=== PATIENT | female | born 1985 | race Asian ===

== ENCOUNTER 2018-10-21 07:33 | Inpatient (IN) | payer OTHER ==
[~2018-10-21] VITALS: Ht 154.9 cm; Wt 75.4 kg
[~2018-10-21 07:33] MED LIST: PRENAT PO; ZOLP10TA PO
[2018-10-21 07:42] VITALS: Ht 154.9 cm; Wt 75.4 kg
[2018-10-21] MEDS ORDERED: CEFAZOLIN 2 GM/50 ML (PMX) 50 ML IVPB SCH (08:00)
[2018-10-21] MEDS ORDERED: METHYLERGONOVINE 0.2 MG INJ IM PRN ×2 (08:00→11:30)
[2018-10-21] MEDS ORDERED: CARBOPROST 250 MCG INJ IM PRN ×2 (08:00→11:30)
[2018-10-21] MEDS ORDERED: OXYTOCIN 30 UNITS/LR 500 ML IV PRN ×2 (08:00→11:30)
[2018-10-21] MEDS ORDERED: OXYTOCIN 30 UNITS/LR 500 ML IV SCH ×2 (08:00→11:23)
[2018-10-21] MEDS ORDERED: MISOPROSTOL 200 MCG TAB PR PRN ×2 (08:00→11:30)
[2018-10-21] MEDS: LACTATED RINGER'S 1,000 ML IV SCH ×2 (08:09→09:38)
--- NOTE | 2018-10-21 08:58 | PREAC ---
Date/Time of Note Date/Time of Note DATE: 10/21/18 TIME: 08:56 Anesthesia Eval and Record Evaluation Time Pre-Procedure Interview DATE: 10/21/18 TIME: 08:56 Age 32 Sex female NPO: 8 hrs Preoperative diagnosis with previous C/S Planned procedure Repeat C/S Past Medical History Past Medical History: None Surgery & Anesthesia Issues No known issue Meds Anticoagulation: No Beta William within 24 hr: No Reason Beta William not given: Pt. not on B-William Reported Medications Zolpidem Tartrate* (Ambien*) 10 Mg Tablet, 10 MG PO HS PRN for INSOMNIA, TAB 01/20/15 Multivit/Min/Fol Ac/Iron/Pren* ( S*) 1 Tab Tab, 1 TAB PO DAILY, TAB 12/05/14 Current Medications Lactated Ringer's 1,000 ml @ 125 mls/hr Q8H IV Last administered on 10/21/18at 08:09; Admin Dose 125 MLS/HR; Start 10/21/18 at 07:39 Cefazolin Sodium/ Dextrose 50 ml @ 100 mls/hr ONCE IVPB ; Start 10/21/18 at 08:00 Oxytocin/Lactated Ringer's 500 ml @ 125 mls/hr POST IV ; Start 10/21/18 at 08:00 Oxytocin/Lactated Ringer's 500 ml @ 0 mls/hr ONCE PRN IV VAGINAL BLEEDING; Start 10/21/18 at 08:00 Methylergonovine Maleate (Methergine) 0.2 mg ONCE PRN IM VAGINAL BLEEDING; Start 10/21/18 at 08:00 Carboprost Tromethamine (Hemabate) 250 mcg ONCE PRN IM VAGINAL BLEEDING; Start 10/21/18 at 08:00 Misoprostol (Cytotec) 1,000 mcg ONCE PRN MI VAGINAL BLEEDING; Start 10/21/18 at 08:00 Meds reviewed: Yes Allergies Coded Allergies: No Known Allergy (Unverified , 01/20/15) Allergies Reviewed: Yes Labs/Studies Labs Reviewed: Reviewed by anesthesiologist Result Diagram: 10/21/18 0750 Laboratory Tests 10/21/18 07:50 Blood Bank Test 10/21/18 07:50 Blood Type A POSITIVE Rh Immune Globulin Candidate NO test: Positive Pre-procedure Exam Airway: Adequate mouth opening Mallampati: Mallampati II Teeth: Normal Lung: Normal Heart: Normal ASA Physical Status ASA physical status: 2 Emergency: None Planned Anesthetic Neuraxial: Spinal Planned Pain Management Sub-arachniod narcotics Pre-operative Attestations Prior to commencing anesthesia and surgery, the patient was re-evaluated, there was verification of: *The patient's identity *The results of appropriate recent lab work and preoperative vital signs *The above evaluation not changing prior to induction *Anesthetic plan, risk benefits, alternative and complications discussed with patient/family; questions answered; patient/family understands, accepts and wishes to proceed. BRITTNEY HERRON MD Oct 21, 2018 08:58
[2018-10-21] MEDS ORDERED: OXYTOCIN 30 UNITS/LR 500 ML IV ONE (09:56)
[2018-10-21] MEDS ORDERED: ONDANSETRON 4 MG INJ ONE (09:58)
[2018-10-21] MEDS ORDERED: morphine SULFATE/PF (10 MG/10 ML) INJ ONE (09:58)
[2018-10-21] MEDS ORDERED: METOCLOPRAMIDE 10 MG INJ ONE (09:58)
[2018-10-21] MEDS ORDERED: OXYTOCIN 10 UNIT INJ ONE ×2 (09:58→10:53)
[2018-10-21] MEDS ORDERED: EPHEDrine 25 MG/5 ML SYG ONE (10:53)
[2018-10-21] MEDS ORDERED: LACTATED RINGER'S 1,000 ML IV SCH (11:23)
[2018-10-21] MEDS ORDERED: ZOLPIDEM 5 MG TAB PO PRN (11:30)
[2018-10-21] MEDS ORDERED: NA PHOSPHATE/BIPHOS 133 ML ENEMA PR PRN (11:30)
[2018-10-21] MEDS ORDERED: LANOLIN HPA 1 PKT TOP PRN (11:30)
[2018-10-21] MEDS ORDERED: METHYLERGONOVINE 0.2 MG TAB PO PRN (11:30)
[2018-10-21] MEDS ORDERED: HYDROCODONE/APAP (5/325) TAB PO PRN ×2 (11:30)
--- NOTE | 2018-10-21 11:42 | SIPON ---
Date/Time of Note Date/Time of Note DATE: 10/21/18 TIME: 11:40 Operative Report Preoperative Diagnosis 39 weeks Gestational diabetes A1 Previous section Admitted for a repeat section Postoperative Diagnosis Same plus baby boy 9 Operation/Procedure Performed Repeat low segment transverse section Surgeon see signature line specimen preparation assistant DR TINEO Anesthesia: spinal Estimated blood loss: other Transfusion Required none Specimen Placenta Grafts/Implants none Complications none SNOW DEXTER MD Oct 21, 2018 11:42
--- NOTE | 2018-10-21 11:58 | PAC ---
Date/Time of Note Date/Time of Note DATE: 10/21/18 TIME: 11:57 Post-Anesthesia Notes Post-Anesthesia Note Activity: WNL Respiratory function: WNL Cardiovascular function: WNL Mental status: Baseline Pain reasonably controlled: Yes Hydration appropriate: Yes Nausea/Vomiting absent: Yes BRITTNEY HERRON MD Oct 21, 2018 11:58
[2018-10-21] MEDS ORDERED: morphine 2 MG INJ IV PRN ×2 (12:00)
[2018-10-21] MEDS ORDERED: NALOXONE (0.4 MG/ML) INJ IV PRN (12:00)
[2018-10-21] MEDS ORDERED: morphine SULFATE/PF (10 MG/10 ML) INJ SPINAL ONE (12:00)
[2018-10-21] MEDS ORDERED: DIPHENHYDRAMINE 50 MG INJ IV PRN (12:00)
[2018-10-21] MEDS ORDERED: EPHEDrine SULFATE 50 MG/5 ML SYG IV PRN (12:00)
[2018-10-21] MEDS ORDERED: KETOROLAC 30 MG INJ IV PRN (12:00)
[2018-10-21] MEDS ORDERED: ONDANSETRON 4 MG INJ IV PRN (12:00)
[2018-10-21] MEDS: IBUPROFEN 800 MG TAB PO SCH ×2 (14:00→22:00)
[2018-10-21 14:15] VITALS: BP 123/59; PULSE 120; RESP 18
--- NOTE | 2018-10-21 14:16 | OPR ---
DATE OF OPERATION: 10/21/2018 OPERATION PERFORMED: Repeat low segment transverse section. PREOPERATIVE DIAGNOSES: 1. A 39 weeks , previous section. 2. Gestational diabetes A1, admitted for repeat . SURGEON: Snow Dexter MD CENTRAL STERILE TECH: Dr. Velazquez. ANESTHESIOLOGIST: . ANESTHESIA: Spinal. COMPLICATIONS: None. PROCEDURE: The patient was given spinal anesthesia, placed in the supine position. The abdomen was prepped and draped and a Rucker catheter was placed in the bladder. The abdomen was prepped and drape d. An incision was made 2 cm up the pubic bone of about 10 cm in length. The abdominal cavity was r eached and the lower uterine segment was identified. Kael retractor was placed. The bladder flap was made. The uterus was opened in the midline with a scalpel and the incision was increased lateral ly on either side for about 3 inches. The baby's head was delivered followed by the body. It was a baby boy, 9. The cord was clamped and cut. The baby was handed over to the medical office assistant instructor team . The cord blood was obtained. The cervix was opened with a ring forceps and the placenta was remov ed. The uterus was cleaned out and closed in 2 layers using #0 PDS looped suture. Hemostasis was go od. The tubes and ovaries were normal. The uterus was hypertrophic without any fibroids. The abdom inal cavity was cleaned out. The sponge counts and needle counts were correct. The abdominal cavity was closed with a 2-0 Vicryl suture. The fascia was closed with 0 PDS looped suture, 2-0 Vicryl for subcutaneous tissue, 3-0 Monocryl subcuticular to the skin. Dermabond and Steri-Strips were applied . The patient tolerated the procedure well and left the OR awake and stable. Sponge counts and inst rument counts were correct. Intravenous antibiotics were given for prophylaxis. Blood loss was abou t 700 mL. The urine was clear at the end of the procedure. Dictated By: SNOW MEDLEY/NTS Conf#: [id number] DID#: [id number] CC: SNOW DEXTER MD;*EndCC*
[2018-10-21 15:13] VITALS: BP 107/59; PULSE 110; RESP 18
[2018-10-21] MEDS: KETOROLAC 30 MG INJ IV SCH ×2 (15:27→23:31)
[2018-10-21] MEDS: CEFAZOLIN 2 GM/50 ML (PMX) 50 ML IVPB SCH ×2 (15:27→23:30)
--- NOTE | 2018-10-21 18:13 | NUR ---
EOSS. PT, IS IN STABLE CONDITION . FUNDUS FIRM NORMAL BLEEDING NO COMPLAINED OF PAIN OR ANY PROBLEM UNDER OBSERVATION .
[2018-10-21 19:30] VITALS: BP 109/54; PULSE 109; RESP 18
--- NOTE | 2018-10-21 20:49 | PREOPHP ---
DATE OF ADMISSION: 10/21/2018 HISTORY OF PRESENT ILLNESS: This is a 32-year-old female, 2, with a previous sectio n and early care. The patient has been evaluated for gestational diabetes that is diet controlled. She also had gestational diabetes in the first . She had no other proble ms. She had been diagnosed with gestational diabetes last time that got recovered immediately after delivery. The patient had good dates since she had early ultrasound. She had a normal care otherwise and normal weight gain, and her EDC is 10/28/2018. She is admitted today for a repeat prasanth arean section. The patient had no other history. She does not drink or smoke. ALLERGIES: SHE HAS NO ALLERGIES. SOCIAL HISTORY: She has no history of drugs, no smoking, no drinking. FAMILY HISTORY: Hypertension. PAST SURGICAL HISTORY: Her only surgery was a section. PHYSICAL EXAMINATION: VITAL SIGNS: At this time, her vital signs are stable, blood pressure is 110/80, pulse 80, respirati ons 16. HEAD AND NECK: Normal. CHEST: Clear. HEART: Normal sinus rhythm. LUNGS: Clear. BREASTS: Soft, nontender, no masses. ABDOMEN: Soft; uterus at term; cephalic presentation; and cervix closed, long, and posterior. EXTREMITIES: Normal with normal pulses, no edema, normal reflexes. DIAGNOSES: 1. Term , 39 weeks' . 2. Previous section. 3. Gestational diabetes A-1. PLAN: She is undergoing a repeat section. She has been advised of the possible risks and p ossible complications of the procedure with her alternatives and options. Written information was pr ovided. She had no more questions and agreed to go ahead with the procedure with full understanding and no more questions. Dictated By: SNOW DEXTER MD [facility]/NTS Conf#: [id number] DID#: [id number]
[2018-10-21] MEDS: SENNA/DOCUSATE NA (8.6MG/50MG) TAB PO SCH (21:22)
[2018-10-22 00:10] VITALS: BP 85/51; PULSE 106; RESP 18
[2018-10-22] MEDS: LACTATED RINGER'S 1,000 ML IV SCH ×3 (01:00→19:00)
[2018-10-22 04:10] VITALS: BP 85/51; PULSE 106; RESP 18
[2018-10-22] MEDS: KETOROLAC 30 MG INJ IV SCH ×4 (05:42→19:00)
[2018-10-22] MEDS: IBUPROFEN 800 MG TAB PO SCH ×3 (06:00→21:41)
--- NOTE | 2018-10-22 06:18 | NUR ---
EOSS: Patient's vital signs are stable, post delivery and pain management protocol effective.No adverse reactions from Ancef antibiotic. Passing gas no Bm is on soft diet. F/C patent and is draining well to a clear yellow urine.Bonding well with baby.
[2018-10-22 08:00] VITALS: BP 98/58; PULSE 102; RESP 18
[2018-10-22] MEDS: SENNA/DOCUSATE NA (8.6MG/50MG) TAB PO SCH ×2 (08:49→21:41)
[2018-10-22] MEDS: CEFAZOLIN 2 GM/50 ML (PMX) 50 ML IVPB SCH (09:09)
--- NOTE | 2018-10-22 11:21 | NUR ---
SS NOTE REFERRAL FOR HX OF PPPD WITH FIRST . MET WITH PT AND , AVERY, AT BEDSIDE. PT SITTING UP IN CHAIR AND FOB HOLDING BABY WHEN FOUND. PT LIVES WITH AND 3 YO DAUGHTER. PT IS UNEMPLOYED AND FOB WORKS A AUTOMOTIVE GENERATOR REPAIRER. PT REPORTED SHE HAD PPD FOR 3 WEEKS AFTER HER FIRST BABY AND ALSO HAD DEPRESSION FOR THE FIRST 5 MONTHS OF HER SECOND , BUT DENIED ANY OTHER HX OF DEPRESSION OR MENTAL HEALTH. PT DID NOT HAVE COUNSELING STATED IT OVERCAME BY ITSELF. PROVIDED PT WITH PPD EDUCATION, LITERATURE AND RESOURCES. PT HAS A CAR SEAT AND PLAN IS FOR BABY TO GO HOME WITH PARENTS. Addendum: 10/22/18 at 1125 by BRIDGER NOEL Amended: Links added.
--- NOTE | 2018-10-22 15:32 | OPPN ---
Date/Time of Note Date/Time of Note DATE: 10/22/18 TIME: 15:26 Anesthesia Follow up Anesthesia Follow up Last documented vital signs Vital Signs Date Temp Pulse Resp B/P (MAP) Pulse Ox O2 O2 Flow FiO2 Time Delivery Rate 10/22/18 99.1 102 18 98/58 (71) Room Air 08:00 Respiratory function: WNL Cardiovascular function: WNL Comments Postoperative pain in good control with spinal duramorph with intermittent use of oral pain medicine. No headache or other specific complaints. BRITTNEY HERRON MD Oct 22, 2018 15:31
[2018-10-22 15:54] VITALS: BP 113/60; PULSE 111; RESP 18
--- NOTE | 2018-10-22 18:06 | NUR ---
EOSS. PT, IS IN STABLE CONDITION .FUNDUS FIRM NORMAL BLEEDING . NO COMPLAINED OF PAIN OR ANY PROBLEM . UNDER OBSERVATION .
[2018-10-22 20:00] VITALS: BP 118/72; PULSE 114; RESP 20
[2018-10-23] MEDS: LACTATED RINGER'S 1,000 ML IV SCH ×3 (01:00→17:00)
[2018-10-23 04:00] VITALS: BP 113/55; PULSE 114; RESP 18
[2018-10-23] MEDS: IBUPROFEN 800 MG TAB PO SCH ×3 (06:12→21:13)
--- NOTE | 2018-10-23 06:57 | NUR ---
PT STABLE. BLEEDING NORMAL. EXCLUSIVE BREAST FEEDING. PT MOVING TOWARDS GOALS.
[2018-10-23 08:00] VITALS: BP_SYST 104; BP_SYST 114; BP_DIAS 72; BP_DIAS 83; PULSE 75; PULSE 99; RESP 18
[2018-10-23] MEDS: SENNA/DOCUSATE NA (8.6MG/50MG) TAB PO SCH ×2 (09:37→21:13)
--- NOTE | 2018-10-23 12:12 | PN ---
Date/Time of Note Date/Time of Note DATE: 10/23/18 TIME: 12:10 Assessment/Plan Lines/Catheters IV Catheter Type (from Nrsg): Peripheral IV Subjective 24 Hr Interval Summary Day 2 after Tolerating diet, ambulatory and had bowel movement already. Pain is tolerated with p.o. medication Incision looking good healing well Uterus contracted Lochia normal Extremities negative Possible discharge in the morning Feeding: advancing diet Pain Control: mild Detailed Summary Eyes: no complaints ENT: no complaints Respiratory: no complaints Cardiovascular: no complaints Gastrointestinal: no complaints Genitourinary: no complaints Musculoskeletal: no complaints Skin: no complaints Neurologic: no complaints Endocrine: no complaints Lymphatic: no complaints Psychological: no complaints, nl mood/affect Immunologic: no complaints Exam/Review of Systems Vital Signs Vitals Vital Signs Date Temp Pulse Resp B/P (MAP) Pulse Ox O2 O2 Flow FiO2 Time Delivery Rate 10/23/18 98.3 99 18 114/83 Room Air 08:00 (93) Intake and Output 10/22/18 10/22/18 10/23/18 1515:00 23:00 07:00 IntakeIntake Total 120 ml OutputOutput Total 2100 ml BalanceBalance -1980 ml Exam Constitutional: alert, oriented, well developed Psych: no complaints, nl mood/affect Head: normocephalic, atraumatic Eyes: nl conjunctiva, EOMI, nl lids, nl sclera ENMT: nl external ears & nose, nl lips & teeth, nl nasal mucosa & septum, mucosa pink and moist Neck: supple, non-tender Respiratory: clear to auscultation, normal air movement Cardiovascular: regular rate and rhythm, nl pulses Gastrointestinal: soft, nl liver, spleen, non-tender Musculoskeletal: nl extremities to inspection, nl gait and stance Extremities: normal pulses Neurological: BOAT ASSEMBLER II-XII intact, nl mental status, nl speech, nl strength Skin: nl turgor, rash or lesions Lymph: nl lymph nodes Results Result Diagram: 10/22/18 0614 SNOW DEXTER MD Oct 23, 2018 12:12
[2018-10-23 16:52] VITALS: BP 114/78; PULSE 100; RESP 18
--- NOTE | 2018-10-23 18:51 | NUR ---
EOSS: PT DOING WELL, FLEET ENEMA GIVEN DUE TO ABD DISTENTION AND DISCOMFORT, +GAS, +BM, STATES RELIEF OF ABD DISCOMFORT. PT SHOWERED, INCISION MARYJANE WITH STERI-STRIPS INTACT. ASSISTED WITH BREAST FEEDING DOING WELL. Addendum: 10/23/18 at 1852 by OSMAN MENDEZ RN Amended: Links added.
[2018-10-23 19:45] VITALS: BP 127/83; PULSE 103; RESP 18
[2018-10-24] MEDS: LACTATED RINGER'S 1,000 ML IV SCH ×2 (02:55→09:00)
[2018-10-24 04:30] VITALS: BP 110/63; PULSE 96; RESP 16
[2018-10-24] MEDS: IBUPROFEN 800 MG TAB PO SCH ×2 (05:28→13:46)
--- NOTE | 2018-10-24 06:09 | NUR ---
E.O.S.S. Patient in stable condition. VSS and systemic sounds wnl. Feeding baby every 2-3 hours or at least 8-12 hours per day. Teaching on feedings reinforced, signs and symptoms of jaundice and utilizing the breast pump for supplementation of expressed milk.
[2018-10-24 08:00] VITALS: BP 121/78; PULSE 100; RESP 17
[2018-10-24] MEDS ORDERED: DIPHTH/TET/ACEL PERTUSS (ADULT) 0.5 ML VIAL IM* ONE (09:00)
[2018-10-24] MEDS ORDERED: MEASLES,MUMPS,RUBELLA VACCINE INJ SC* ONE (09:00)
--- NOTE | 2018-10-24 10:32 | PN ---
Date/Time of Note Date/Time of Note DATE: 10/24/18 TIME: 10:30 OB Subjective Subjective Subjective Ambulating. Pain well-controlled with p.o. pain medication. Tolerated regular diet. Breast-feeding. Vaginal bleeding decreased. Passed flatus. Denies any complaint. OB Objective Objective Objective General appearance: Alert and oriented x4 does not appear to be in any acute distress Abdomen: Soft, fundus firm and appropriate tenderness in the incision Incision: Clean dry and intact Extremities: No calf tenderness, no click no edema Breast: No evidence of mastitis, fissure CBC & BMP 10/22/18 06:14 OB Assessment/Plan Other Assessment: Status post repeat section postop day #3 Doing well DC home Follow-up at 2 weeks and 6 weeks postop with primary OB office or sooner as needed Incisional care care discussed with patient Rx provided by primary OB CARY HANCOCK MD Oct 24, 2018 10:32
--- NOTE | 2018-10-24 10:36 | PD.PPDC ---
ICT ACCOUNT MANAGER Discharge Instruction Provider Information Physician Information Cary Hancock covered for Joanne Peters Diagnosis [id number] Final Diagnosis: Gfiou7z s/p repeat C/S Condition [id number] Patient Condition: Aibfz8r Good Diet Bosvy5Pi Diet: Eplzw7j Resume Regular Diet Activity/Restrictions Vitpu4Hg Restrictions: Dkmat4y No Exercising No Lifting No Driving Minimize Walking Minimize Stair-climbing No Sexual Activity Nothing in the Vagina No [place] No Tampons, douche Wound/Drain Care Instructions [id number] Wound/Drain Care Xomib2i Remove Steri Strips in 2 Instructions: weeks Wash with soap and water Follow-up Follow-up with Physician: 2, 6, Week/Weeks Return to clinic for Sliln5Wn WIRELINE OPERATOR Instructions: Mnnwz6f Fever greater than 101 Chills Worsening abdominal pain Excessive Vaginal Bleeding More than 2 pads per hour Unable to tolerate diet [id number] OB Instructions: Bklfc9f Breast Tenderness Depression Blurried Vision Headache [id number] Surgical Instructions: Thbuc7b Incisional Drainage Incisional Redness CARY HANCOCK MD Oct 24, 2018 10:36
--- NOTE | 2018-10-24 10:38 | DS ---
Date/Time of Note Date/Time of Note DATE: 10/24/18 TIME: 10:37 Discharge Summary Admission/Discharge Info Admit Date/Time Oct 21, 2018 at 07:33 Discharge Date/Time 10/24/2018 Discharge Diagnosis s/p repeat section GDM A1, delivered Patient Condition: Good Consults N/A Procedures Repeat section Via Pfannenstiel skin incision Hx of Present Illness 32-year-old female, 2, with a previous section and early care. Patient underwent repeat section. Antepartum course was complicated by gestational diabetes that was diet controlled. She had no other complications during her course. She underwent repeat section at 39 weeks Intraoperative and postoperative course was uncomplicated. On postoperative day #3 patient was noted to be stable enough to be discharged. She was ambulating. Tolerated regular diet. Passed flatus. Breast-feeding. Her vitals were stab le. She was afebrile. She denies any complaint. Discussed with the patient to keep her follow-up appointment at 2 weeks and 6 weeks postop with primary OB or sooner as needed. Rx was provided by primary OB including pain medication Patient vitals were stable prior to discharge home. Hospital Course Non-complicated Home Meds Reported Medications Zolpidem Tartrate* (Ambien*) 10 Mg Tablet, 10 MG PO HS PRN for INSOMNIA, TAB /11/05 Multivit/Min/Fol Ac/Iron/Pren* ( S*) 1 Tab Tab, 1 TAB PO DAILY, TAB /15 Follow-up Plan 2 weeks and 6 weeks primary OB office Primary Care Provider Care Physician No Primary Time spent on discharge: > 30 minutes CARY HANCOCK MD Oct 24, 2018 10:38
[2018-10-24] MEDS: SENNA/DOCUSATE NA (8.6MG/50MG) TAB PO SCH (11:20)
--- NOTE | 2018-10-24 15:45 | NUR ---
patient discharged home with her baby in arms via wheelchair in stable condition. Discharge instructions given to patient. Instructed patient to call Dr Cheng's clinic to schedule a follow up appointment for 2-6 weeks. Signs and symptoms of infection discussed and instructed patient to go to ER or call MD if any develops. Patient verbalized understanding.
== END 2018-10-24 16:35 | disposition home or self-care (01) | DRG 788 ==
LOC: L-D 07:33 → PP1 14:10
PROVIDERS: ADMIT Obstetrics & Gynecology; ATTEND Obstetrics & Gynecology
PROC: 10D00Z1 Extraction of Products of Conception, Low, Open Approach (ICD-10-PCS; principal; 2018-10-21 09:30)
DX: O24.420 Gestational diabetes mellitus in childbirth, diet controlled (principal); O34.211 Maternal care for low transverse scar from previous cesarean delivery; Z3A.39 39 weeks gestation of pregnancy; Z37.0 Single live birth
CPT/HCPCS: 85025; 85610; 85730; 86592; 86850; 86900; 86901; 87340; 99464; J0690; J1885; J2274; J2405; J2590; J2765; J7120